=== PATIENT | male | born 1990 | race Caucasian/White ===

== ENCOUNTER 2017-04-09 19:34 | Emergency (ER) | payer OTHER ==
[2017-04-09] MEDS ORDERED: IOPAMIDOL-300 100 ML VIAL IVP ONE (22:56)
== END 2017-04-10 01:02 | disposition home or self-care (01) ==
DX: R10.13 Epigastric pain (principal); R11.0 Nausea
CPT/HCPCS: 36415; 74177; 80053; 81003; 83690; 85025; 87339; 99283; 99284; Q9967

== ENCOUNTER 2018-02-26 12:58 | Emergency (ER) | payer OTHER ==
--- NOTE | 2018-02-26 13:56 | ED Physician Documentation ---
PD HPI BACK PAIN - Stated complaint Stated Complaint: BACK PX - Chief complaint Chief Complaint: Back Pain - History obtained from History obtained from: Patient - History of Present Illness Timing - details: Abrupt onset Location: Lower Quality: Pain, Spasm, Sharp, Similar to prior episodes Associated symptoms: No: Fever, Weakness, Numbness, Incontinent of urine, Unable to urinate, Hematuria, Incontinent of stool Improves with: Rest, Position, Meds Worsened by: Movement, Lifting, Twisting Similar symptoms before: Diagnosis (back pain) Recently seen: Emergency Dept (at [place] [facility] with injection of antiinflamatory that did not help.) - Additional information Additional information: 27-year-old male with a 6 year history of back pain has had symptoms on and off and sometimes bad. He mowed his lawn and developed worsening back pain. The pain was bad enough that he went to the emergency department in [place] 2 days ago and he had no significant relief with the treatment given there is come to the emergency department here today. He was wanting to get MRI study done as he has had this pain for 6 years and now has pain that is much worse then he has ever had before. His doctor at the [facility] has asked him to come to the emergency department today for MRI scanning. Review of Systems Constitutional: denies: Fever, Fatigue Eyes: denies: Decreased vision Ears: denies: Ear pain Nose: denies: Congestion Throat: denies: Sore throat Cardiac: denies: Chest pain / pressure Respiratory: denies: Dyspnea, Cough GI: denies: Abdominal Pain, Nausea, Vomiting : denies: Dysuria, Frequency Skin: denies: Rash Musculoskeletal: reports: Back pain, Extremity pain. denies: Neck pain Neurologic: reports: Numbness. denies: Generalized weakness, Focal weakness, Syncope, Headache, Head injury, LOC PD PAST MEDICAL HISTORY - Past Surgical History Past Surgical History: No - Present Medications Home Medications: Ambulatory Orders Medication Instructions Recorded Confirmed Cyclobenzaprine [Flexeril] 10 mg PO TID PRN #20 tablet 02/26/18 HYDROcod/ACETAM 5/325 [[place] 5/325] 1 - 2 ea PO Q6H PRN #15 tablet 02/26/18 Methocarbamol 1 tab PO QID 02/26/18 02/26/18 Naproxen 1 tab PO BID 02/26/18 02/26/18 - Allergies Allergies/Adverse Reactions: Allergies Allergy/AdvReac Type Severity Reaction Status Date / Time No Known Drug Allergies Allergy Verified 02/26/18 13:21 - Social History Does the pt smoke?: Yes Smoking Status: Current every day smoker Does the pt drink ETOH?: Yes Does the pt have substance abuse?: No - Immunizations Immunizations are current?: Yes - POLST Patient has POLST: No PD ED PE NORMAL - Vitals Vital signs reviewed: Yes (hypertensive systolic ) - General General: Alert and oriented X 3, Well developed/nourished, Other (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 ) - HEENT HEENT: Atraumatic, PERRL, EOMI - Neck Neck: No bony TTP - Respiratory Respiratory: No respiratory distress - Back Back: No CVA TTP, No spinal TTP, Other (There is lower lumbar paraspinous muscle tenderness and firmness at the L4/5 level bilaterally and extending into the sciatic notch. ) - Derm Derm: Normal color, Warm and dry, No rash - Extremities Extremities: No deformity, No edema - Neuro Neuro: Alert and oriented X 3, No motor deficit, No sensory deficit, Normal speech Eye Opening: Spontaneous Motor: Obeys Commands Verbal: Oriented GCS Score: 15 - Psych Psych: Normal mood, Normal affect Results - Vitals Vitals: Vital Signs - 24 hr 02/26/18 13:18 Temperature 36.1 C L Heart Rate 76 Respiratory 16 Rate Blood Pressure 136/69 H O2 Saturation 98 Oxygen O2 Source Nasal cannula - Rads (name of study) MRI lumbar spine Radiology: Prelim report reviewed (Impression 1. Tiny left foraminal protrusion at L3-L4 small posterior central left paracentral disc protrusion at L5-S1. No stenosis.), EMP read indepedently, See rad report PD MEDICAL DECISION MAKING - ED course Complexity details: considered differential, d/w patient ED course: 27-year-old male with acute on chronic low back pain with pins and needles down the backs of his legs has been asked to come to the emergency department to obtain MRI scanning of the back. He does have pain that was not adequately treated in the with the previous treatment and here in the emergency department he is given dexamethasone 10 mg orally and Vicodin orally. Departure - Departure Disposition: 01 Home, Self Care Clinical Impression: Sciatica Qualifiers: Laterality: bilateral Qualified Code(s): M54.31 - Sciatica, right side; M54.32 - Sciatica, left side; M54.32 - Sciatica, left side Condition: Stable Instructions: ED Sciatica Follow-Up: SHANNON Douglass [Provider Group] Prescriptions: Cyclobenzaprine [Flexeril] 10 mg PO TID PRN #20 tablet PRN Reason: Spasms HYDROcod/ACETAM 5/325 [[place] 5/325] 1 - 2 ea PO Q6H PRN #15 tablet PRN Reason: Pain
[2018-02-26] MEDS ORDERED: HYDROcod/ACETAM 5/325 MG TABLET PO STA (14:46)
[2018-02-26] MEDS ORDERED: DEXAMETHASONE 10 MG/ML VIAL PO STA (14:46)
--- NOTE | 2018-02-26 16:38 | MRI Report ---
EXAM: MRI LUMBAR SPINE WITHOUT CONTRAST EXAM DATE: 02/26/2018 04:25 PM. CLINICAL HISTORY: Acute on chronic bilateral sciatica. Intermittent, chronic low back pain. Numbness and tingling at the legs. COMPARISON: None. TECHNIQUE: Multiplanar, multisequence T1-weighted and fluid-sensitive sequences of the lumbar spine f rom T12 to S1 without contrast. Other: None. FINDINGS: Spinal Cord: The conus terminates at L1-L2. The conus medullaris and cauda equina are unremarkable. Alignment: No scoliosis or spondylolisthesis. Bone Marrow: Five [id number] lumbar vertebral bodies are assumed. No gross fractures or bone les ions. No bone marrow edema. Disk Levels/Facets: T12-L1: Unremarkable. L1-L2: Unremarkable. L2-L3: Unremarkable. L3-L4: Tiny left foraminal disk protrusion. No stenoses. L4-L5: Unremarkable. L5-S1: Mild to moderate disk space narrowing. Small posterior central to left paracentral disk protru david. No stenoses. Musculature: Normal. No edema or fatty atrophy. Other: The partially visualized retroperitoneum is unremarkable. IMPRESSION: 1. Tiny left foraminal protrusion at L3-L4. 2. Small posterior central left paracentral disk protrusion at L5-S1. No stenoses. Comment: The following findings are so common in adults without low back pain that while we report th eir presence, they must be interpreted with caution and in the context of the clinical situation. (Re tabatha Corcoran et al, Spine 2001) Prevalence of findings in patients without low back pain: Disk degeneration (any evidence): 92% Disk desiccation/T2 signal loss: 83% Disk height loss: 56% Disk bulge: 64% Disk protrusion: 32% Annular tear/high intensity zone: 38% [facility] Referring Provider Line: [phone] SITE ID: [id number]
[2018-02-26 17:22] VITALS: BP 127/70
== END 2018-02-26 17:21 | disposition home or self-care (01) ==
LOC: ED 12:58
DX: M54.32 Sciatica, left side (principal); M54.31 Sciatica, right side; F17.200 Nicotine dependence, unspecified, uncomplicated
CPT/HCPCS: 72148; 99283; A9270

== ENCOUNTER 2018-09-16 21:11 | Outpatient (CLI) | payer OTHER | END 2018-09-16 21:12 | disposition short-term general hospital (02) | LOC: EMS 21:11 | PROVIDERS: ATTEND Surgery | DX: M54.9 Dorsalgia, unspecified (principal) | CPT/HCPCS: A0425; A0429 ==